=== PATIENT | female | born 1935 | race Caucasian/White ===

== ENCOUNTER → 2016-10-09 | Outpatient (REF) | payer MEDICARE, OTHER ==
[2016-10-09 18:29] LABS: CALCIUM OXALATE CRYSTALS SMALL
== END ==
LOC: M SMT 17:26
PROVIDERS: ATTEND Nurse Practitioner Family
DX: R31.9 Hematuria, unspecified (principal); R39.0 Extravasation of urine
CPT/HCPCS: 81001; 87086; 88108; G0463

== ENCOUNTER → 2016-10-15 | Outpatient (REF) | payer MEDICARE, OTHER | LOC: M SMT 12:58 | PROVIDERS: ATTEND Nurse Practitioner Family | DX: R31.9 Hematuria, unspecified (principal) ==

== ENCOUNTER → 2016-11-06 | Outpatient (REF) | payer MEDICARE, OTHER ==
[2016-11-06 20:17] LABS: CALCIUM OXALATE CRYSTALS MODERATE
== END ==
LOC: M SMT 17:19
PROVIDERS: ATTEND Nurse Practitioner Women's Health
DX: R31.9 Hematuria, unspecified (principal)
CPT/HCPCS: 81001; 87086; G0463

== ENCOUNTER → 2016-12-11 | Outpatient (REF) | payer MEDICARE, OTHER | LOC: M LAB REF 11:50 | PROVIDERS: ATTEND Dermatology | DX: C44.622 Squamous cell carcinoma of skin of right upper limb, including shoulder (principal); L85.8 Other specified epidermal thickening; C44.729 Squamous cell carcinoma of skin of left lower limb, including hip | CPT/HCPCS: 11100; 11101; 88305; G0463 ==

== ENCOUNTER → 2016-12-23 | Outpatient (REF) | payer MEDICARE, OTHER | LOC: M LAB REF 12:12 | PROVIDERS: ATTEND Dermatology | DX: D48.5 Neoplasm of uncertain behavior of skin (principal) ==

== ENCOUNTER → 2017-01-13 | Outpatient (REF) | payer MEDICARE, OTHER ==
[2017-01-13 12:42] LABS: MEAN CORPUSCULAR HEMOGLOBIN 31.6 pg (27.0-33.0); MEAN CORPUSCULAR HGB CONC 32.6 g/dl (32.0-36.5); RED CELL DISTRIBUTION WIDTH 12.9 % (11.5-14.5); WHITE BLOOD COUNT 7.8 K/mm3 (4.0-10.0)
[2017-01-13 13:15] LABS: ALBUMIN 3.7 GM/DL (3.2-5.2); ALBUMIN/GLOBULIN RATIO 1.19 (1.00-1.93); ALKALINE PHOSPHATASE 70 U/L (45-117); ALT/SGPT 18 U/L (12-78); ANION GAP 7 MEQ/L (8-16); AST/SGOT 15 U/L (15-37); BILIRUBIN,TOTAL 0.5 MG/DL (0.2-1.0); BLOOD UREA NITROGEN 18 MG/DL (7-18); CALCIUM LEVEL 8.6 MG/DL (8.8-10.2); CARBON DIOXIDE LEVEL 31 MEQ/L (21-32); CHLORIDE LEVEL 105 MEQ/L (98-107); CHOLESTEROL LEVEL 210 MG/DL (<200); GLOMERULAR FILTRATION RATE > 60.0 (>32); GLUCOSE, FASTING 90 MG/DL (83-110); POTASSIUM SERUM 4.5 MEQ/L (3.5-5.1); SODIUM LEVEL 143 MEQ/L (136-145); TOTAL PROTEIN 6.8 GM/DL (6.4-8.2); TRIGLYCERIDES LEVEL 80 MG/DL (<150)
== END ==
LOC: M SFHCPLAZ 09:56
PROVIDERS: ATTEND Internal Medicine
DX: Z00.00 Encounter for general adult medical examination without abnormal findings (principal); F17.210 Nicotine dependence, cigarettes, uncomplicated; M81.0 Age-related osteoporosis without current pathological fracture; E78.00 Pure hypercholesterolemia, unspecified; G47.00 Insomnia, unspecified

== ENCOUNTER → 2018-01-05 | Outpatient (REF) | payer MEDICARE, OTHER | LOC: M SFHCPLAZ 15:43 | DX: R30.0 Dysuria (principal) ==

== ENCOUNTER → 2018-01-16 | Outpatient (REF) | payer MEDICARE, OTHER ==
[2018-01-16 11:46] LABS: HEMOGLOBIN 15.9 g/dl (12.0-15.5); MEAN CORPUSCULAR HEMOGLOBIN 31.4 pg (27.0-33.0); MEAN CORPUSCULAR HGB CONC 32.4 g/dl (32.0-36.5); MEAN CORPUSCULAR VOLUME 96.8 fl (80.0-96.0); PLATELET COUNT, AUTOMATED 249 10^3/uL (150-450); RED BLOOD COUNT 5.06 10^6/uL (4.00-5.40); RED CELL DISTRIBUTION WIDTH 13.2 % (11.5-14.5)
[2018-01-16 13:42] LABS: ALBUMIN 3.6 GM/DL (3.2-5.2); ALBUMIN/GLOBULIN RATIO 1.09 (1.00-1.93); ALKALINE PHOSPHATASE 71 U/L (45-117); ALT/SGPT 19 U/L (12-78); ANION GAP 7 MEQ/L (8-16); AST/SGOT 21 U/L (7-37); BILIRUBIN,TOTAL 0.6 MG/DL (0.2-1.0); BLOOD UREA NITROGEN 18 MG/DL (7-18); CALCIUM LEVEL 8.5 MG/DL (8.8-10.2); CARBON DIOXIDE LEVEL 31 MEQ/L (21-32); CHLORIDE LEVEL 103 MEQ/L (98-107); CHOLESTEROL LEVEL 197 MG/DL (<200); CHOLESTEROL RISK RATIO 2.345 (<5); CREATININE FOR GFR 0.77 MG/DL (0.55-1.30); GLOMERULAR FILTRATION RATE > 60.0 (>32); GLUCOSE, FASTING 69 MG/DL (70-100); HDL CHOLESTEROL 84 MG/DL (>40); LDL CHOLESTEROL 91 MG/DL (<100); NON-HDL-C 113 MG/DL; POTASSIUM SERUM 4.4 MEQ/L (3.5-5.1); SODIUM LEVEL 141 MEQ/L (136-145); THYROID STIMULATING HORMONE 0.596 uIU/ML (0.358-3.740); TOTAL PROTEIN 6.9 GM/DL (6.4-8.2); TRIGLYCERIDES LEVEL 112 MG/DL (<150)
== END ==
LOC: M SFHCPLAZ 09:30
DX: Z00.00 Encounter for general adult medical examination without abnormal findings (principal); F17.210 Nicotine dependence, cigarettes, uncomplicated; M81.0 Age-related osteoporosis without current pathological fracture; E78.00 Pure hypercholesterolemia, unspecified; G47.00 Insomnia, unspecified
CPT/HCPCS: 84443

== ENCOUNTER → 2019-01-06 | Outpatient (REF) | payer MEDICARE, OTHER ==
[~2019-01-06] MED LIST: MUPI2OI EXT; OXYC1TAB23 OR
[2019-01-06 15:43] LABS: HEMATOCRIT 48.2 % (36.0-47.0); HEMOGLOBIN 15.7 g/dl (12.0-15.5); MEAN CORPUSCULAR HEMOGLOBIN 32.2 pg (27.0-33.0); MEAN CORPUSCULAR HGB CONC 32.6 g/dl (32.0-36.5); MEAN CORPUSCULAR VOLUME 98.8 fl (80.0-96.0); PLATELET COUNT, AUTOMATED 218 10^3/uL (150-450); RED BLOOD COUNT 4.88 10^6/uL (4.00-5.40); WHITE BLOOD COUNT 6.9 10^3/uL (4.0-10.0)
[2019-01-06 16:02] LABS: ALBUMIN 3.6 GM/DL (3.2-5.2); ALT/SGPT 23 U/L (12-78); BILIRUBIN,TOTAL 0.3 MG/DL (0.2-1.0); BLOOD UREA NITROGEN 20 MG/DL (7-18); CARBON DIOXIDE LEVEL 31 MEQ/L (21-32); CHLORIDE LEVEL 106 MEQ/L (98-107); CHOLESTEROL LEVEL 196 MG/DL (<200); CHOLESTEROL RISK RATIO 2.361 (<5); CREATININE FOR GFR 0.75 MG/DL (0.55-1.30); GLOMERULAR FILTRATION RATE > 60.0 (>32); GLUCOSE, FASTING 94 MG/DL (70-100); HDL CHOLESTEROL 83 MG/DL (>40); LDL CHOLESTEROL 79 MG/DL (<100); NON-HDL-C 113 MG/DL; POTASSIUM SERUM 4.3 MEQ/L (3.5-5.1); SODIUM LEVEL 142 MEQ/L (136-145); TOTAL PROTEIN 6.7 GM/DL (6.4-8.2); TRIGLYCERIDES LEVEL 168 MG/DL (<150)
[2019-01-06 16:07] LABS: TOTAL 25(OH) VITAMIN D 32.3 NG/ML (30.0-100.0)
== END ==
LOC: M SFHCPLAZ 14:23
PROVIDERS: ATTEND Internal Medicine
DX: E78.00 Pure hypercholesterolemia, unspecified (principal); M81.0 Age-related osteoporosis without current pathological fracture; Z86.010 Personal history of colon polyps
CPT/HCPCS: 36415; 80053; 80061; 82306; 85027; 90471; 90715; 93005; G0463

== ENCOUNTER 2019-01-14 14:24 | Emergency (ER) | payer MEDICARE, OTHER ==
[~2019-01-14] VITALS: Ht 157.5 cm; Wt 52.5 kg
[2019-01-14] MEDS ORDERED: MUPI2OI EXT (14:36)
[2019-01-14] MEDS ORDERED: OXYC1TAB23 OR (14:36)
[2019-01-14] MEDS ORDERED: LIDOCAINE 1% MDV 20ML VIAL SC ONE (15:00)
[2019-01-14 15:21] LABS: BASO % 0.3 % (0.0-1.0); EOS # 0.1 10^3/uL (0.0-0.5); EOS % 1.6 % (0.0-3.0); HEMATOCRIT 47.2 % (36.0-47.0); HEMOGLOBIN 15.2 g/dl (12.0-15.5); LYMPH # 2.5 10^3/uL (1.5-5.0); MEAN CORPUSCULAR HEMOGLOBIN 31.3 pg (27.0-33.0); MEAN CORPUSCULAR HGB CONC 32.2 g/dl (32.0-36.5); MEAN CORPUSCULAR VOLUME 97.3 fl (80.0-96.0); MONO # 0.6 10^3/uL (0.0-0.8); MONO % 7.6 % (0.0-5.0); NEUTROPHILS # 4.2 10^3/uL (1.5-8.5); NEUTROPHILS % 56.1 % (36.0-66.0); PLATELET COUNT, AUTOMATED 217 10^3/uL (150-450); RED BLOOD COUNT 4.85 10^6/uL (4.00-5.40); WHITE BLOOD COUNT 7.5 10^3/uL (4.0-10.0)
--- NOTE | 2019-01-14 15:38 | REP ---
CHEST, SINGLE VIEW: Single view of the chest is performed. Bibasilar interstitial fibrotic change is stable. There is no acute infiltrate. Heart is not enlarged. There is mild calcification of the thoracic aorta. The mediastinal silhouette is unchanged. IMPRESSION: No acute infiltrate. Electronically Signed by Sarthak Tompkins MD 01/14/2019 05:53 P
[2019-01-14 16:09] LABS: BLOOD UREA NITROGEN 13 MG/DL (7-18); CALCIUM LEVEL 8.6 MG/DL (8.8-10.2); CARBON DIOXIDE LEVEL 28 MEQ/L (21-32); CHLORIDE LEVEL 106 MEQ/L (98-107); CK-MB VALUE MASS 1.9 NG/ML (<3.6); CPK CREATINE PHOSPHOKINASE 140 U/L (26-192); CREATININE FOR GFR 0.69 MG/DL (0.55-1.30); GLOMERULAR FILTRATION RATE > 60.0 (>32); GLUCOSE, FASTING 103 MG/DL (70-100); MB/CK RELATIVE INDEX 1.36 (< OR =4); POTASSIUM SERUM 5.3 MEQ/L (3.5-5.1); SODIUM LEVEL 142 MEQ/L (136-145); THYROID STIMULATING HORMONE 0.713 uIU/ML (0.358-3.740); TROPONIN I < 0.02 NG/ML (< 0.10)
[2019-01-14 16:46] VITALS: BP 124/73
--- NOTE | 2019-01-14 21:42 | ECGEPIP ---
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
== END 2019-01-14 16:50 | disposition home or self-care (01) ==
LOC: EDBD 14:24 → M ED 14:24
DX: R00.2 Palpitations (principal); Z88.1 Allergy status to other antibiotic agents; Z88.2 Allergy status to sulfonamides; F17.210 Nicotine dependence, cigarettes, uncomplicated

== ENCOUNTER → 2019-01-28 | Outpatient (REF) | payer MEDICARE, OTHER | LOC: M SFHCPLAZ 16:57 | PROVIDERS: ATTEND Dermatology | DX: L57.0 Actinic keratosis (principal) ==

== ENCOUNTER → 2019-10-05 | Outpatient (REF) | payer MEDICARE, OTHER | LOC: M LAB REF 17:44 | PROVIDERS: ATTEND Dermatology | DX: C44.619 Basal cell carcinoma of skin of left upper limb, including shoulder (principal); C44.629 Squamous cell carcinoma of skin of left upper limb, including shoulder; C44.622 Squamous cell carcinoma of skin of right upper limb, including shoulder ==

== ENCOUNTER → 2019-11-09 | Outpatient (REF) | payer MEDICARE, OTHER ==
[~2019-11-09] MED LIST changes: +ACET-897 PO; +ATEN25TA PO; +B-12100010 PO; +BENA25CA4 PO; +C 50TAB PO; +CRAN400C PO; +ELIQ2.5T PO; +FLAX1300 PO; +GNP1000T11 PO; +MELA1TAB9 PO; +VITMTA PO
== END ==
LOC: M LAB REF 18:18
PROVIDERS: ATTEND Dermatology
DX: C44.619 Basal cell carcinoma of skin of left upper limb, including shoulder (principal)

== ENCOUNTER 2019-11-10 09:52 | Inpatient (IN) | payer MEDICARE, OTHER ==
[~2019-11-10] VITALS: Ht 154.9 cm; Wt 51.4 kg
[~2019-11-10 09:52] MED LIST changes: -ACET-897 PO; -ATEN25TA PO; -B-12100010 PO; -BENA25CA4 PO; -C 50TAB PO; -CRAN400C PO; -ELIQ2.5T PO; -FLAX1300 PO; -GNP1000T11 PO; -MELA1TAB9 PO; -VITMTA PO
[2019-11-10] MEDS ORDERED: MORPHINE 2 MG/ML 1ML VIAL (J2270) IV PRN (10:30)
[2019-11-10] MEDS ORDERED: ATEN25TA PO (11:20)
[2019-11-10] MEDS ORDERED: ELIQ2.5T PO (11:20)
[2019-11-10] MEDS ORDERED: FLAX1300 PO (11:36)
[2019-11-10] MEDS ORDERED: BENA25CA4 PO (11:36)
[2019-11-10] MEDS ORDERED: C 50TAB PO (11:36)
[2019-11-10] MEDS ORDERED: B-12100010 PO (11:36)
[2019-11-10] MEDS ORDERED: GNP1000T11 PO (11:36)
[2019-11-10] MEDS ORDERED: CRAN400C PO (11:36)
[2019-11-10] MEDS ORDERED: MELA1TAB9 PO (11:36)
[2019-11-10] MEDS ORDERED: ACET-897 PO (11:36)
[2019-11-10] MEDS ORDERED: VITMTA PO (11:36)
--- NOTE | 2019-11-10 11:37 | REP ---
LEFT KNEE, THREE VIEWS: Three views of the left knee performed. There is a fracture of the patella with mild distraction of fracture fragments and craniocaudal dimension. I see no other evidence of acute fracture or dislocation. There are mild degenerative changes with chondrocalcinosis in the medial and lateral joint compartments. Electronically Signed by Sarthak Tompkins MD 11/10/2019 11:22 P
[2019-11-10 12:00] LABS: HEMATOCRIT 49.7 % (36.0-47.0); MEAN CORPUSCULAR HEMOGLOBIN 31.3 pg (27.0-33.0); MEAN CORPUSCULAR HGB CONC 32.2 g/dl (32.0-36.5); MEAN CORPUSCULAR VOLUME 97.1 fl (80.0-96.0); PLATELET COUNT, AUTOMATED 225 10^3/uL (150-450); RED BLOOD COUNT 5.12 10^6/uL (4.00-5.40); WHITE BLOOD COUNT 7.4 10^3/uL (4.0-10.0)
[2019-11-10 12:12] LABS: INR 1.08; PROTHROMBIN TIME 13.7 SECONDS (11.8-14.0)
[2019-11-10 12:13] LABS: PARTIAL THROMBOPLASTIN TIME 28.6 SECONDS (25.0-38.4)
[2019-11-10 12:26] LABS: CK-MB VALUE MASS 3.1 NG/ML (<3.6); CPK CREATINE PHOSPHOKINASE 132 U/L (26-192); MB/CK RELATIVE INDEX 2.35 (< OR =4); TROPONIN I < 0.02 NG/ML (< 0.10)
[2019-11-10] MEDS ORDERED: BOOSTRIX/ADACEL VACCINE (DIPHTH/PERTUSS/ACELL/TETANUS) 0.5ML SYR IM ONE (12:30)
[2019-11-10 12:47] LABS: BLOOD UREA NITROGEN 16 MG/DL (7-18); CALCIUM LEVEL 9.3 MG/DL (8.8-10.2); CARBON DIOXIDE LEVEL 28 MEQ/L (21-32); CHLORIDE LEVEL 106 MEQ/L (98-107); CREATININE FOR GFR 0.76 MG/DL (0.55-1.30); GLOMERULAR FILTRATION RATE > 60.0 (>32); GLUCOSE, FASTING 91 MG/DL (70-100); POTASSIUM SERUM 4.1 MEQ/L (3.5-5.1); SODIUM LEVEL 141 MEQ/L (136-145)
[2019-11-10 13:20] VITALS: BP 132/82
--- NOTE | 2019-11-10 13:50 | HPEPDOC ---
General Date of Admission Nov 10, 2019 at 12:21 Date of Service: Nov 10, 2019 Chief Complaint The patient is a 84-year-old female admitted with a reason for visit of Ambulatory Dysfunction, Patellar Fracture. History of Present Illness 84 y/o F was initially brought to ER after a mechanical fall(pt fell on her left knee after tripping on dog leash) c/o ambulatory dysfunction due to left knee pa in and found to have left patellar fracture. Pt was given tetanus vaccine in ER. Hospitalist service was consulted to admit the patient for further management. Pt was seen and examined at bedside in ER. Pt c/o ambulatory dysfunction due to left knee pain. NO other associated symptom. Home Medications Scheduled Acetaminophen (Tylenol Extra Strength) 500 Mg Tablet, 500 MG PO QHS, (Reported) Apixaban (Eliquis) 2.5 Mg Tablet, 2.5 MG PO BID, (Reported) Ascorbic Acid (Vitamin C) 500 Mg Tablet, 500 MG PO DAILY, (Reported) Atenolol (Atenolol) 25 Mg Tablet, 25 MG PO DAILY, (Reported) Cranberry (Cranberry) 400 Mg Capsule, 400 MG PO DAILY, (Reported) Cyanocobalamin (Vitamin B-12) (Vitamin B-12) 1,000 Mcg Capsule, 1,000 MCG PO 3XW, (Reported) MON, WED, FRI Diphenhydramine HCl (Benadryl) 25 Mg Capsule, 25 MG PO QHS, (Reported) Flaxseed/Omega3,6,9/Fatty Acid (Flax Seed Oil 1,300 mg Softgel) 1 Each Capsule, 1 CAP PO DAILY, (Reported) Glucosamine Sulfate Dipot Chlr (Glucosamine) 1,000 Mg Tablet, 1,000 MG PO DAILY, (Reported) Melatonin (Melatonin) 5 Mg Tablet, 5 MG PO QHS, (Reported) Multivitamins (Thera M Plus Tablet) 1 Each Tablet, 1 TAB PO DAILY, (Reported) Allergies Coded Allergies: Sulfa (Sulfonamide Antibiotics) (Verified Allergy, Intermediate, rash, 11/10/19) Past Medical History Medical History AFib Family History Pt does not recall if her parents had any health issues and at what age they Social History * 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 moist/pink Neck Exam: Positive: Supple Chest Exam: Positive: Clear to auscultation Heart Exam: Positive: Irregular Rhythm Abdomen Exam: Positive: Normal bowel sounds Extremity Exam: Positive: Normal pulses, Other (b/l lower extremities neurovascularly intact ); Negative: Edema, Tenderness, Swelling Skin Exam: Positive: Other skin issue (abrasion over left knee ) Neuro Exam: Positive: Normal Speech, Strength at 5/5 X4 ext, Other (could not check gait due to left knee pain ) Psych Exam: Positive: Mood NL Vital Signs Vital Signs Date Time Temp Pulse Resp B/P (MAP) Pulse Ox O2 Delivery O2 Flow Rate FiO2 11/10/19 13:22 98.7 67 16 132/82 (99) 96 Room Air Laboratory Data Labs 24H Laboratory Tests 2 11/10/19 11:34: Nucleated Red Blood Cells % (auto) 0.0, Prothrombin Time 13.7, Prothromb Time International Ratio 1.08, Activated Partial Thromboplast Time 28.6, Anion Gap 7L, Glomerular Filtration Rate > 60.0, Calcium Level 9.3, Total Creatine Kinase 132, Creatine Kinase MB 3.1, Creatine Kinase MB Relative Index 2.35, Troponin I < 0.02 CBC/BMP Laboratory Tests 11/10/19 11:34 Assessment/Plan 84 y/o F with ambulatory dysfunction due to left patellar fracture after a mechanical fall. Labs and imaging studies reviewed. Impression- ambulatory dysfunction due to left patellar fracture Plan 1. Ambulatory dysfunction due to left patellar fracture supportive care PT eval fall precaution will f/u with Ortho will hold Eliquis for now if patient requires surgery 2. h/o AFib will continue home rate control medication Atenolol will hold eliquis Plan / VTE VTE Prophylaxis Ordered?: Yes CYN COLEMAN MD Nov 10, 2019 13:50
--- NOTE | 2019-11-10 14:12 | REP ---
CHEST, SINGLE VIEW: COMPARISON: 01/14/2019. There is no acute infiltrate. The lungs are unchanged in appearance. The heart does not appear to be significantly enlarged. There is no calcification of the thoracic aorta. The mediastinal silhouette is unchanged. IMPRESSION: No acute infiltrate. Electronically Signed by Sarthak Tompkins MD 11/10/2019 11:25 P
--- NOTE | 2019-11-10 17:50 | ECGEPIP ---
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
[2019-11-10] MEDS: diphenhydrAMINE 25MG CAP PO SCH (20:29)
[2019-11-10] MEDS: HEPARIN SOD (PORCINE) 5000UNITS/ML VIAL (J1644 PER 1000UNITS) SC SCH (20:30)
[2019-11-10 22:00] VITALS: BP 109/72
[2019-11-10] MEDS: traMADol 50 MG TAB PO PRN (22:05)
[2019-11-11] MEDS: ACETAMINOPHEN TAB 650MG DOSE (2X325MG) PO PRN (05:34)
[2019-11-11 06:17] VITALS: BP 152/96
[2019-11-11] MEDS: MULTIVITAMINS/MINERALS THERAP 1 TAB PO SCH (08:56)
[2019-11-11] MEDS: ASCORBIC ACID 500 MG TAB PO SCH (08:56)
[2019-11-11] MEDS: atenoloL 25 MG TAB PO SCH (08:56)
[2019-11-11] MEDS: HEPARIN SOD (PORCINE) 5000UNITS/ML VIAL (J1644 PER 1000UNITS) SC SCH ×2 (08:56→20:44)
[2019-11-11] MEDS ORDERED: TETRAHYDROZOLINE OPHTH 0.05% 15 ML BTL OU PRN (10:00)
[2019-11-11] MEDS: traMADol 50 MG TAB PO PRN ×2 (10:09→22:08)
--- NOTE | 2019-11-11 11:37 | CR ---
DATE OF CONSULTATION: 11/11/2019 CHIEF COMPLAINT: Left knee pain. HISTORY OF PRESENT ILLNESS: An 84-year-old woman. 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 She had a new puppy that got excited and knocked her over, and she ended up tripping over the leash and falling. Could not walk. Knee pain. Was seen in the emergency room (ER). Appreciated to have a displaced patella fracture. She is very active prior to this and very independent. ALLERGIES: Include SULFA. MEDICATIONS: Include Eliquis, last dose 11/10/2019. Atenolol. Benadryl. Leivasy-3. Glucosamine. Melatonin. Multivitamins. PAST MEDICAL HISTORY: Atrial fibrillation (AFib). PAST SURGICAL HISTORY: Includes carpal tunnel release. FAMILY HISTORY: Is not contributory. 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 REVIEW OF SYSTEMS: Reviewed, remanded chart. Negative except per history of present illness (HPI), ten-point. CLINICAL EXAMINATION: Constitutional: She is a very healthy spry-appearing 84-year-old female. Appears to be younger than her stated age. Psychological: Alert, oriented, cooperative. Mood and affect appropriate. No acute distress. Judgment and insight appropriate. Vital signs: On admission were blood pressure 130/80, afebrile 98.7, pulse regular 70. Normocephalic, atraumatic. She is fluent. No shortness of breath, cough, or evidence of respiratory infection. Abdomen is no obesity. No distention. Soft. Cardiac is irregular, consistent with her history of atrial fibrillation. Extremity: Tender at the patella. Moderate swelling of the knee. Integument seems to be intact, including around the left knee. Calves are soft, nontender. Ankles nonedematous. LABORATORY DATA: Hematocrit is 49. Creatinine is 0.76. Blood sugar is 91. IMAGING STUDIES: Displaced patella fracture. IMPRESSION: Displaced patella fracture left knee in a very active 84-year-old woman. RECOMMENDATIONS: This would be an operative intervention. When the patient is 72 hours out from [facility], will plan on surgery to fix the patella. I discussed this with the patient. Afterwards, she will be able to protected weightbear. Prognosis overall is very good. She should heal this and get on with her active life. We have coordinated with the ER doctor, Dr. Ferrera. We will coordinate with the hospitalist for continued medical optimization, and we will coordinate with the operating room for surgical scheduling. Consent will be completed. For further details, please refer to the medical record. [place]
--- NOTE | 2019-11-11 12:59 | IPNPDOC ---
Date Seen The patient was seen on 11/11/19. Progress Note 84 y/o F with ambulatory dysfunction due to left patellar fracture after a mechanical fall. Labs and imaging studies reviewed. Pt was seen and examined at bedside. Pt c/o mild left knee pain. No new complaint. Physical complaint. 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 Ambulatory dysfunction due to left patellar fracture supportive care PT eval will f/u with Ortho will continue to hold Eliquis for now if patient requires surgery 2. paroxysmal h/o AFib will continue home rate control medication Atenolol will hold eliquis DVT ppx - sq heparin, will hold heparin on the day of planned surgery VS, I&O, 24H, Fishbone Vital Signs/I&O Vital Signs Date Time Temp Pulse Resp B/P (MAP) Pulse Ox O2 Delivery O2 Flow Rate FiO2 11/11/19 10:39 18 11/11/19 08:56 70 152/96 11/11/19 06:17 97.1 98 Room Air I&O- Last 24 Hours up to 6 AM 11/11/19 06:00 Intake Total 1120 ml Balance 1120 ml CYN COLEMAN MD Nov 11, 2019 12:59
[2019-11-11 14:00] VITALS: BP 149/93
[2019-11-11 20:00] VITALS: BP 115/75
[2019-11-11] MEDS: diphenhydrAMINE 25MG CAP PO SCH (20:44)
[2019-11-12 04:50] VITALS: BP 119/75
[2019-11-12] MEDS: ASCORBIC ACID 500 MG TAB PO SCH (08:22)
[2019-11-12] MEDS: CYANOCOBALAMIN 500 MCG TAB PO SCH (08:22)
[2019-11-12] MEDS: MULTIVITAMINS/MINERALS THERAP 1 TAB PO SCH (08:22)
[2019-11-12] MEDS: ACETAMINOPHEN TAB 650MG DOSE (2X325MG) PO PRN (08:24)
[2019-11-12] MEDS: atenoloL 25 MG TAB PO SCH (08:24)
[2019-11-12] MEDS: HEPARIN SOD (PORCINE) 5000UNITS/ML VIAL (J1644 PER 1000UNITS) SC SCH ×2 (08:25→20:00)
[2019-11-12 14:00] VITALS: BP 116/69
--- NOTE | 2019-11-12 17:01 | IPN ---
DATE: 11/12/2019 SUBJECTIVE: Patient denies any chest pain, pressure, tightness, shortness of breath, palpitations, lightheadedness or dizziness. No prior history of coronary artery disease, myocardial infarction ([place]) or congestive heart failure. Patient's atrial fibrillation has been rate controlled. She has been off of the Eliquis since admission on 11/11/2019; last dose was 11/10/2019. Plans are for surgical intervention 72 hours after the last dose of Eliquis. PHYSICAL EXAMINATION: Temperature 97.4, pulse 78, respiratory rate 20, blood pressure 119/75, 97% on room air. Generally, patient is awake, alert, oriented to person, place and time, quite gregarious and pleasant, answering questions appropriately. No jugular venous distention (JVD). No thyromegaly. No facial asymmetry. Tongue is midline. Moist mucous membranes. Lungs are clear to auscultation. No wheezing, rales or rhonchi. Heart: S1, S2, irregularly irregular. Abdomen is soft, nontender, nondistended. Positive bowel sounds. Extremities: Left knee with some edema along the anterior thigh. No rebound, guarding. Positive dorsalis pedis, posterior tibialis. Skin: Warm, dry, well perfused. LABORATORY DATA: Reviewed. ASSESSMENT AND PLAN: This is an 84-year-old female, history of atrial fibrillation, on chronic Eliquis, had ambulatory dysfunction with subsequent left patellar fracture. IMPRESSION: 1. Medical clearance. Patient is off Eliquis. Last dose was on 11/10/2019. The patient will be cleared for surgery on 11/13/2019. Orthopedic surgeon, Dr. Sukhwinder Crocker, has been consulted for surgical intervention. Currently bedrest, non-weightbearing. 2. Left patellar fracture. Patient is medically cleared to go to surgery 72 hours after last dose on 11/10/2019 of her Eliquis. Should be ready on 11/13/2019 to proceed to surgical intervention. 3. Atrial fibrillation. Off Eliquis. Currently rate controlled on atenolol 25 mg daily. 4. Vitamin C deficiency. On supplement 500 mg daily. 5. Vitamin B12 deficiency. On 1000 mcg three times weekly. CODE STATUS: FULL CODE.
[2019-11-12 20:00] VITALS: BP 117/69
[2019-11-12] MEDS: diphenhydrAMINE 25MG CAP PO SCH (21:36)
[2019-11-12] MEDS: traMADol 50 MG TAB PO PRN (21:37)
[2019-11-13] VITALS (9 sets, daily range): BP systolic 113–131; BP diastolic 69–95
[2019-11-13] MEDS ORDERED: ceFAZolin SOD 2 GM in IV 1 EA IV SCH (06:00)
[2019-11-13] MEDS: ASCORBIC ACID 500 MG TAB PO SCH (08:15)
[2019-11-13] MEDS: MULTIVITAMINS/MINERALS THERAP 1 TAB PO SCH (08:15)
[2019-11-13] MEDS: atenoloL 25 MG TAB PO SCH (08:32)
[2019-11-13] MEDS ORDERED: ceFAZolin 1GM VIAL (J0690 PER 500MG) As Ordered ONE (09:59)
[2019-11-13] MEDS ORDERED: BUPIVACAINE/EPIN 0.25% 30 ML VIAL As Ordered ONE (09:59)
[2019-11-13] MEDS ORDERED: LIDOCAINE 2% 100MG/5ML SDV (FOR ANES.) As Ordered ONE (10:19)
[2019-11-13] MEDS ORDERED: propofoL 200 MG/20 ML VIAL As Ordered ONE (10:19)
[2019-11-13] MEDS ORDERED: ONDANSETRON 4MG/2ML VIAL As Ordered ONE (10:19)
[2019-11-13] MEDS ORDERED: dexameTHASONE 4 MG/ML 1ML VIAL (J1100 PER 1MG) As Ordered ONE (10:19)
[2019-11-13] MEDS ORDERED: ceFAZolin 2 GM/D5W 50 ML IV BAG (J0690 PER 500MG) As Ordered ONE (10:27)
[2019-11-13] MEDS ORDERED: MIDAZOLAM INJ 2MG/2ML VIAL (J2250 PER 1MG) As Ordered ONE (10:51)
[2019-11-13] MEDS ORDERED: PHENYLephrine HCL 500 MCG/5 ML (100MCG/ML) SYRINGE (J2370) As Ordered ONE (11:26)
[2019-11-13] MEDS ORDERED: ePHEDrine SULFATE 25 MG/5 ML(5MG/ML) SYRINGE As Ordered ONE (11:26)
[2019-11-13] MEDS ORDERED: LR 1,000 ML IV SCH (12:45)
[2019-11-13] MEDS ORDERED: ONDANSETRON 4MG/2ML VIAL IV PRN (12:45)
[2019-11-13] MEDS ORDERED: fentaNYL 100 MCG/2 ML INJECTION (J3010) IV PRN (12:45)
[2019-11-13] MEDS ORDERED: PERCOCET 5MG/325MG TAB PO PRN ×3 (12:45→13:30)
[2019-11-13] MEDS ORDERED: METOCLOPRAMIDE INJ 10MG/2ML VIAL (J2765 PER 1) IV PRN (12:45)
[2019-11-13] MEDS ORDERED: D5W/LR 1,000 ML IV SCH (13:30)
[2019-11-13] MEDS ORDERED: MORPHINE 4 MG/ML 1ML VIAL/SYRINGE (J2270) IV PRN (13:30)
[2019-11-13] MEDS: METAMUCIL (PSYLLIUM) PACKET PO SCH (14:10)
[2019-11-13] MEDS ORDERED: ceFAZolin SOD 1 GM in D5W MINI-BAG PLUS 50 ML IV ONE (15:00)
--- NOTE | 2019-11-13 15:03 | REP ---
REASON: ORIF left knee patella. Internal fixation wires have been placed affixing a previously described patellar fracture. The alignment is near anatomical. Electronically Signed by Santana Hobson DO 11/13/2019 04:27 P
--- NOTE | 2019-11-13 16:57 | IPN ---
DATE: 11/13/2019 SUBJECTIVE: Patient has no complaints of shortness of breath, chest pain, pressure, or tightness, lightheadedness, or dizziness. Pain is 5/10, postoperatively left open reduction, internal fixation, patella fracture. OBJECTIVE: PHYSICAL EXAMINATION: VITAL SIGNS: Temperature 98.9, pulse 76, respiratory rate 18, blood pressure 114/69, 92% on room air. GENERAL: Patient is in no respiratory distress. No jugular venous distention (JVD). No thyromegaly. No cervical lymphadenopathy. LUNGS: Clear to auscultation. No wheezes, rales, or rhonchi. HEART: S1, S2, irregularly irregular. ABDOMEN: Soft, nontender, nondistended. Positive bowel sounds. EXTREMITIES: Left knee bandaged. SKIN: Warm, dry, well perfused. LABORATORY DATA: Reviewed. ASSESSMENT AND PLAN: An 84-year-old female with a history of chronic atrial fibrillation, on Eliquis, held for left patellar fracture open reduction, internal fixation (ORIF). 1. Left patellar fracture status post open reduction, internal fixation. Pain medications, deep vein thrombosis (DVT) prophylaxis regimen per orthopedic surgery. Patient's Eliquis may be resumed on 11/14/2019. 2. Atrial fibrillation, rate controlled on atenolol 25 daily. Resume Eliquis on 11/14/2019. 3. Vitamin C and B12 deficiency. Resume supplementation as outpatient. DISPOSITION: Physical therapy (PT) clearance prior to discharge home. [facility]
[2019-11-13] MEDS: diphenhydrAMINE 25MG CAP PO SCH (21:10)
[2019-11-14 01:56] VITALS: BP 109/71
[2019-11-14 05:52] VITALS: BP 118/72
[2019-11-14] MEDS ORDERED: PERC5TAB12 PO (05:53)
[2019-11-14] MEDS: METAMUCIL (PSYLLIUM) PACKET PO SCH (09:06)
[2019-11-14] MEDS: MULTIVITAMINS/MINERALS THERAP 1 TAB PO SCH (09:06)
[2019-11-14] MEDS: APIXABAN 2.5 MG TAB (ELIQUIS) PO SCH ×2 (09:06→21:47)
[2019-11-14] MEDS: ASCORBIC ACID 500 MG TAB PO SCH (09:06)
[2019-11-14 09:07] VITALS: BP 120/76
[2019-11-14] MEDS: atenoloL 25 MG TAB PO SCH (09:07)
[2019-11-14] MEDS ORDERED: BISACODYL 5 MG TAB PO PRN (12:00)
[2019-11-14] MEDS ORDERED: SENOKOT S TAB PO PRN (12:00)
[2019-11-14] MEDS ORDERED: MOM 30ML SUSPENSION UDC PO PRN (12:00)
[2019-11-14] MEDS ORDERED: SENOKOT S TAB PO ONE (13:00)
[2019-11-14 14:00] VITALS: BP 132/81
[2019-11-14] MEDS: ACETAMINOPHEN TAB 650MG DOSE (2X325MG) PO PRN ×2 (14:43→21:47)
[2019-11-14] MEDS: diphenhydrAMINE 25MG CAP PO SCH (21:47)
[2019-11-14 22:00] VITALS: BP 111/78
[2019-11-15 06:00] VITALS: BP 139/82
[2019-11-15] MEDS ORDERED: AMBI5TAB PO (06:30)
[2019-11-15] MEDS: APIXABAN 2.5 MG TAB (ELIQUIS) PO SCH (08:35)
[2019-11-15] MEDS: MULTIVITAMINS/MINERALS THERAP 1 TAB PO SCH (08:35)
[2019-11-15] MEDS: CYANOCOBALAMIN 500 MCG TAB PO SCH (08:35)
[2019-11-15 08:36] VITALS: BP 133/83
[2019-11-15] MEDS: METAMUCIL (PSYLLIUM) PACKET PO SCH (08:36)
[2019-11-15] MEDS: ASCORBIC ACID 500 MG TAB PO SCH (08:36)
[2019-11-15] MEDS: atenoloL 25 MG TAB PO SCH (08:36)
[2019-11-15 08:37] VITALS: BP 133/83
--- NOTE | 2019-11-15 09:10 | IPN ---
DATE: 11/14/2019 SUBJECTIVE: Patient complains of constipation, has not had a bowel movement since she got here. No nausea or vomiting. Tolerating her diet well. Patient says her pain is controlled, 3/10 at the bedside. She ambulated with a walker, appears to have been stable on her feet and anxious to go home tomorrow. PHYSICAL EXAMINATION: VITAL SIGNS: Temperature 97.4, pulse 76, respiratory rate 18, blood pressure 120/76, 96% on room air. GENERALLY: Patient is awake, alert, oriented to person, place, and time, answering questions appropriately. No jugular venous distention (JVD), no thyromegaly. LUNGS: Clear to auscultation. No wheezing or rales. HEART: S1, S2, sinus rhythm. ABDOMEN: Soft, nontender, nondistended. Positive bowel sounds. EXTREMITIES: Postoperative left knee bandaged and in a knee stabilizer. No cyanosis, clubbing, or pitting edema. Skin warm, dry, well-perfused, pink in color. Able to wiggle her toes. Motor function is 5/5. Gait was not tested. LABORATORY DATA: Reviewed. ASSESSMENT AND PLAN: This is an 84-year-old female with a history of chronic atrial fibrillation, on Eliquis, held for left patellar fracture open reduction internal fixation (ORIF), resumed this morning. 1. Left patellar fracture status post open reduction internal fixation (ORIF). Pain medication, deep vein thrombosis (DVT) prophylaxis resumed this morning with chronic Eliquis. Orthopaedic for activity and postoperative followup. Acute rehabilitative unit (ARU) has been consulted. Home safety evaluation in the morning. Walks with a walker. 2. Constipation secondary to pain medication. On bowel regimen, Senokot, Dulcolax, Milk of Magnesia, and MiraLAX. 3. Chronic atrial fibrillation. On atenolol 25, rate controlled. On Eliquis, restarted this morning. 4. Vitamin C and B12 deficiency. Supplemented. DISPOSITION: Discharge in the morning if passes home safety evaluation.
[2019-11-15] MEDS ORDERED: MIRA3350 PO (11:57)
[2019-11-15] MEDS ORDERED: SENO8.6T10 PO (11:57)
== END 2019-11-15 12:10 | disposition home or self-care (01) | DRG 516 ==
LOC: EDBD 09:52 → M ED 09:52 → INTOOBSV 12:21 → M ED INP 12:21 → ENRESERV 12:42 → M MS5PR 13:13 → OBSVTOIN 11-12 12:52
PROVIDERS: ADMIT Internal Medicine; ATTEND General Practice
PROC: 0QSF04Z Reposition Left Patella with Internal Fixation Device, Open Approach (ICD-10-PCS; principal; 2019-11-13 10:00)
DX: S82.002A Unspecified fracture of left patella, initial encounter for closed fracture (principal); I48.20 Chronic atrial fibrillation, unspecified; Z79.899 Other long term (current) drug therapy; Z88.2 Allergy status to sulfonamides; I48.0 Paroxysmal atrial fibrillation; E55.9 Vitamin D deficiency, unspecified; E53.8 Deficiency of other specified B group vitamins; W01.0XXA Fall on same level from slipping, tripping and stumbling without subsequent striking against object, initial encounter; Y92.009 Unspecified place in unspecified non-institutional (private) residence as the place of occurrence of the external cause

== ENCOUNTER → 2020-02-11 | Outpatient (REF) | payer MEDICARE, OTHER ==
[~2020-02-11] MED LIST changes: +ACET-897 PO; +AMBI5TAB PO; +ATEN25TA PO; +B-12100010 PO; +BENA25CA4 PO; +C 50TAB PO; +CRAN400C PO; +ELIQ2.5T PO; +FLAX1300 PO; +GNP1000T11 PO; +MELA1TAB9 PO; +MIRA3350 PO; +PERC5TAB12 PO; +SENO8.6T10 PO; +VITMTA PO
== END ==
LOC: M LAB REF 14:04
PROVIDERS: ATTEND Dermatology
DX: C44.629 Squamous cell carcinoma of skin of left upper limb, including shoulder (principal); C44.622 Squamous cell carcinoma of skin of right upper limb, including shoulder; L57.0 Actinic keratosis; L57.8 Other skin changes due to chronic exposure to nonionizing radiation

== ENCOUNTER → 2020-10-04 | Outpatient (REF) | payer MEDICARE, OTHER | LOC: M LAB REF 14:03 | PROVIDERS: ATTEND Physician Assistant | DX: L57.0 Actinic keratosis (principal); L57.8 Other skin changes due to chronic exposure to nonionizing radiation ==

== ENCOUNTER → 2020-10-22 | Outpatient (CLI) | payer MEDICARE, OTHER ==
--- NOTE | 2020-10-24 08:57 | REP ---
INDICATION: EVAL FOR OCCULT FX. COMPARISON: Comparison radiographs are dated October 16, 2020. TECHNIQUE: Axial, coronal, and sagittal imaging planes utilized. T1 and T2 weighted scans are obtained with and without fat saturation.. FINDINGS: There is a pattern of heterogeneous low T1 high T2 signal intensity in the superior pubic and inferior pubic rami bilaterally as well as the right symphysis consistent with radiographically occult fractures. There is adjacent intramuscular soft tissue edema. Linear clefts are seen in the right symphysis, the left superior pubic ramus, and bilaterally in the inferior pubic rami. This is not felt to reflect the bony destructive process. No proximal femur fracture is seen. Remainder of the bony pelvic ring appears intact. There is however a rounded 2.3 cm lesion in the right sacral ala of uncertain significance. This does not appear to be traumatic. It shows low T1 and high T2 signal. Benign versus malignant neoplasm. No other focal bony lesion is seen. Degenerative disc and facet changes are noted in the lower lumbar spine. There is early osteoarthritic change in the hips. There is soft tissue edema adjacent to the greater trochanters bilaterally, left greater than right. No pelvic mass or adenopathy is seen. The uterus appears to be surgically absent. IMPRESSION: Abnormal bone signal intensity bilaterally in the superior and inferior pubic rami and in the right symphysis consistent with healing radiographically occult fractures versus insufficiency fractures. There is also a 2.2 cm rounded lesion in the right sacrum which could be neoplastic. Consider radionuclide bone scan for further evaluation. <Electronically signed by Santana Love > 10/24/20 0813
--- NOTE | 2020-10-24 09:00 | REP ---
INDICATION: EVAL FOR OCCULT FX. COMPARISON: Comparison radiographs are from October 16, 2020. TECHNIQUE: Axial, coronal, and sagittal imaging planes utilized for left hip MRI study. T2 weighted fat sat images are acquired.. FINDINGS: Cortical and medullary bone signal intensity are normal in the proximal femur on the left. There is no evidence of avascular necrosis. There is a Alda trochanteric T2 weighted soft tissue edema consistent with tendinitis or bursitis. There is some tendon insertion site spurring on the greater trochanter. 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 Ligamentum flavum appears intact. There is abnormal signal intensity in the proximal aspect of the superior pubic ramus on the left consistent with healing fracture. There is some adjacent muscle and soft tissue edema visible. Similarly, there is abnormal cyst cyst T2 signal intensity and adjacent edema along the inferior pubic ramus on the left again consistent with healing fracture. No bony destructive lesion is appreciated. IMPRESSION: T2 weighted scans of the left hip demonstrate evidence of healing radiographically occult fracture of the inferior pubic ramus and superior pubic ramus on the left. There is tendon 0 bursitis changes adjacent to the greater trochanter on the left. <Electronically signed by Santana Love > 10/24/20 [id number]
== END ==
LOC: M RAD 13:24
PROVIDERS: ATTEND Physician Assistant Surgical
DX: M16.0 Bilateral primary osteoarthritis of hip (principal); M25.552 Pain in left hip

== ENCOUNTER → 2020-11-20 | Outpatient (CLI) | payer MEDICARE, OTHER ==
--- NOTE | 2020-11-20 14:32 | REP ---
INDICATION: PAIN IN HIPS. COMPARISON: Prior left hip MRI and pelvic MRI 10/22/2020 showed bilateral superior and inferior pubic rami fractures and within the pubic symphysis on the right. TECHNIQUE/RADIOTRACER AND DOSE: After the intravenous administration of 22.0 mCi of technetium 99 M MDP a triple phase bone scan of the hips was obtained. FINDINGS: There is no definite abnormal focal activity seen in the osseous pelvis or soft tissues on the flow portion of the exam. Blood pool scintigraphy shows diffuse increased activity in the pubic rami and pubic symphysis region unfortunately obscured by a a photopenic defect caused by a lead shield placed over the pelvis. Delayed scintigraphy of the pelvis shows increased activity in the pubic symphysis and rami probably equal to that what was visualized on the blood pool images along with increased focal activity in the inferior pubic rami the activity of which appears increased compared to blood pool scintigraphy. IMPRESSION: Increased activity seen in the pelvis, as described above, consistent with known fractures. <Electronically signed by Santana Hobson > 11/20/20 1739
== END ==
LOC: M RAD 08:11
PROVIDERS: ATTEND Physician Assistant
DX: M25.552 Pain in left hip (principal); M25.551 Pain in right hip
CPT/HCPCS: 78315; A9503

== ENCOUNTER → 2021-01-08 | Outpatient (CLI) | payer MEDICARE, OTHER ==
[2021-01-08 10:39] LABS: BASO % 0.3 % (0.0-1.0); EOS # 0.1 10^3/uL (0.0-0.5); EOS % 1.3 % (0.0-3.0); HEMATOCRIT 47.4 % (36.0-47.0); HEMOGLOBIN 15.2 g/dl (12.0-15.5); LYMPH # 1.7 10^3/uL (1.5-5.0); LYMPH % 23.1 % (24.0-44.0); MEAN CORPUSCULAR HEMOGLOBIN 31.3 pg (27.0-33.0); MEAN CORPUSCULAR HGB CONC 32.1 g/dl (32.0-36.5); MEAN CORPUSCULAR VOLUME 97.7 fl (80.0-96.0); MONO # 0.6 10^3/uL (0.0-0.8); MONO % 8.8 % (2.0-8.0); NEUTROPHILS # 4.7 10^3/uL (1.5-8.5); NEUTROPHILS % 65.9 % (36.0-66.0); PLATELET COUNT, AUTOMATED 235 10^3/uL (150-450); RED BLOOD COUNT 4.85 10^6/uL (4.00-5.40); WHITE BLOOD COUNT 7.2 10^3/uL (4.0-10.0)
[2021-01-08 11:14] LABS: ALBUMIN 3.4 GM/DL (3.2-5.2); ALT/SGPT 25 U/L (12-78); BILIRUBIN,TOTAL 0.6 MG/DL (0.2-1.0); BLOOD UREA NITROGEN 12 MG/DL (7-18); CARBON DIOXIDE LEVEL 32 MEQ/L (21-32); CHLORIDE LEVEL 106 MEQ/L (98-107); CHOLESTEROL LEVEL 214 MG/DL (<200); CHOLESTEROL RISK RATIO 2.853 (<5); CREATININE FOR GFR 0.64 MG/DL (0.55-1.30); GLOMERULAR FILTRATION RATE > 60.0 (>32); GLUCOSE, FASTING 81 MG/DL (70-100); HDL CHOLESTEROL 75 MG/DL (>40); LDL CHOLESTEROL 111 MG/DL (<100); NON-HDL-C 139 MG/DL; POTASSIUM SERUM 4.3 MEQ/L (3.5-5.1); SODIUM LEVEL 139 MEQ/L (136-145); THYROID STIMULATING HORMONE 0.494 uIU/ML (0.358-3.740); TOTAL PROTEIN 6.5 GM/DL (6.4-8.2); TRIGLYCERIDES LEVEL 142 MG/DL (<150)
[2021-01-08 13:17] LABS: HEPATITIS C VIRUS ABY INDEX < 0.0 INDEX (<0.8)
== END ==
LOC: M PLALAB 08:56
PROVIDERS: ATTEND Internal Medicine
DX: E78.00 Pure hypercholesterolemia, unspecified (principal); M81.0 Age-related osteoporosis without current pathological fracture; Z86.79 Personal history of other diseases of the circulatory system; Z11.59 Encounter for screening for other viral diseases; Z86.010 Personal history of colon polyps

== ENCOUNTER → 2021-11-26 | Outpatient (REF) | payer MEDICARE, OTHER | LOC: M LAB REF 16:34 | PROVIDERS: ATTEND Surgery | DX: L72.0 Epidermal cyst (principal) ==